=== PATIENT | female | born 1995 | race Caucasian/White ===

== ENCOUNTER 2018-04-13 23:38 | Outpatient (CLI) | payer OTHER ==
[2018-04-14 00:02] VITALS: BP 131/79
[2018-04-14] MEDS ORDERED: LACTATED RINGERS 1,000 ML IV ONE (00:46)
[2018-04-14 01:35] LABS: Bacteria,Urine 2+ /HPF (Negative); Bilirubin,Urine NEG (Negative); Blood,Urine NEG (Negative); Color,Urine Yellow (Yellow); Urobilinogen,Urine < 2.0 mg/dL (<2.0)
[2018-04-14] MEDS ORDERED: CLEOCIN 300 MG/50 mL 300 MG/50 ML BAG IV ONE (02:00)
[2018-04-14] MEDS: BRETHINE SUB-Q SCH ×2 (02:09→02:44)
[2018-04-14] MEDS ORDERED: TYLENOL PO ONE (03:02)
== END 2018-04-14 03:23 | disposition home or self-care (01) ==
LOC: TRG 23:38
PROVIDERS: ATTEND Obstetrics & Gynecology
DX: O36.8130 Decreased fetal movements, third trimester, not applicable or unspecified (principal); O26.893 Other specified pregnancy related conditions, third trimester; R10.2 Pelvic and perineal pain; Z3A.29 29 weeks gestation of pregnancy; Z88.0 Allergy status to penicillin
CPT/HCPCS: 59025; 81001; 96360; 96365; 96372; J3105